=== PATIENT | male | born 1970 | race Caucasian/White ===

== ENCOUNTER → 2021-01-31 | Outpatient (CLI) | payer BC ==
--- NOTE | 2021-01-31 17:01 | ECHOF ---
Referral Reason:R01.1 Cardiac Murmur MEASUREMENTS -------- HEIGHT: 157.5 cm WEIGHT: 54.4 kg BP: 115/69 IVSd: 1.1 cm (0.6 - 1.1) LVIDd: 3.1 cm (3.9 - 5.3) LVPWd: 0.9 cm (0.6 - 1.1) EDV(Teich): 38 ml IVSs: 1.5 cm LVIDs: 2.0 cm LVPWs: 1.4 cm %IVS Thck: 35 % ESV(Teich): 12 ml EF(Teich): 68 % %FS: 37 % SV(Teich): 26 ml LA Diam: 2.2 cm (2.7 - 3.8) RVIDd: 2.9 cm (< 3.3) LALs A4C: 3.9 cm LAAs A4C: 11.5 cm LAESV A-L A4C: 29 ml LAESV MOD A4C: 24 ml Ao Diam: 2.7 cm (2.0 - 3.7) AV Cusp: 2.1 cm (1.5 - 2.6) EPSS: 0.6 cm MV E Dale: 1.01 m/s MV DecT: 126 ms MV Dec [place]: 8.0 m/s MV A Dale: 0.87 m/s MV E/A Ratio: 1.15 MV PHT: 37 ms LVOT Vmax: 1.01 m/s LVOT maxP.06 mmHg AV Vmax: 1.91 m/s AV maxP.52 mmHg AV Vmax: 1.93 m/s AV Vmean: 1.37 m/s AV maxP.91 mmHg AV meanP.32 mmHg AV Env.Ti: 272 ms AV VTI: 37.3 cm TR Vmax: 2.62 m/s TR maxP.48 mmHg RAP: 5.00 mmHg RVSP: 32.48 mmHg MV EF SLOPE: 83.46 mm/s (70 - 150) MV EXCURSION: 17.96 mm (> 18.000) FINDINGS -------- Sinus rhythm. This was a technically good study. The left ventricular size is normal. There is borderline concentric left ventricular hypertrophy. Overall left ventricular systolic function is normal with, an EF between 60 - 65 %. The right ventricle is normal in size. The left atrium is normal in size. The right atrium is normal in size. Interatrial and interventricular septum intact. The aortic valve is bicuspid. There is mild aortic stenosis present. Peak/mean gradient across th e Aortic Valve is 14.91mmHg / 8.32mmHg. The mitral valve is normal. Mild tricuspid regurgitation present. Right ventricular systolic pressure is normal at < 35 mmHg. There is no pulmonic regurgitation present. The aortic root size is normal. Normal inferior vena cava with normal inspiratory collapse consistent with estimated right atrial pre ssure of 5 mmHg. There is no pericardial effusion. CONCLUSIONS -------- 1. The left ventricular size is normal. 2. There is borderline concentric left ventricular hypertrophy. 3. Overall left ventricular systolic function is normal with, an EF between 60 - 65 %. 4. The aortic valve is bicuspid. 5. There is mild aortic stenosis present. 6. Peak/mean gradient across the Aortic Valve is 14.91mmHg / 8.32mmHg. 7. Mild tricuspid regurgitation present. 8. There is no pericardial effusion. VAPOR COATER: Zulma Camacho RDCS
== END | disposition home or self-care (01) ==
LOC: RADECHMAIN 11:54
PROVIDERS: ATTEND Family Medicine
DX: Q23.1 Congenital insufficiency of aortic valve (principal); I07.1 Rheumatic tricuspid insufficiency
CPT/HCPCS: 93306

== ENCOUNTER 2022-02-13 15:02 | Emergency (ER) | payer BC ==
[2022-02-13 15:17] VITALS: RESP 18; TEMP 98.3
--- NOTE | 2022-02-13 16:05 | ED ---
General Adult HPI - General Chief complaint: Head Injury Stated complaint: Brain Bleed, Transfer from CT Time Seen by Provider: 02/13/22 15:40 Source: patient, family, RN notes reviewed, old records reviewed Mode of arrival: wheelchair - History of Present Illness Initial comments: This is a 51-year-old male presents emergency department after having been found by started on the ground on Saturday night. He went to see his primary medical care doctor and because she was a little altered according to the daughter the doctor ordered a CAT scan a CAT scan showed intraventricular hemorrhage so he was sent to the emergency department. Patient states she does not remember fal ling he doesn't know if he did fall the daughter just assume that he fell. Patient states he doesn't have any place on the scalp that is abraded or has a hematoma or any tenderness. Patient denies any neck pain. Patient denies any other complaints at this time. Patient denies any fever chills or cough per patient denies any chest pain difficulty breathing or shortness of breath per patient denies any abdominal pain patient denies nausea vomiting diarrhea per patient denies being on any blood thinners. Patient states he drinks on a regular basis but not every day. - Related Data Home Medications Medication Instructions Recorded Confirmed Cholecalciferol [Vitamin D3 (25 50 mcg PO DAILY 02/13/22 02/13/22 Mcg = 1000 Iu)] Levothyroxine Sodium [Synthroid] 50 mcg PO DAILY 02/13/22 02/13/22 Multivit-Mins/Iron/Folic/Lycop 1 tab PO DAILY 02/13/22 02/13/22 [Centrum Men's Tablet] Allergies Allergy/AdvReac Type Severity Reaction Status Date / Time pancuronium Allergy Anaphylaxis Verified 02/13/22 16:52 Penicillins Allergy Anaphylaxis Verified 02/13/22 16:52 Review of Systems ROS Statement: Those systems with pertinent positive or pertinent negative responses have been documented in the HPI. ROS Other: All systems not noted in ROS Statement are negative. Past Medical History Past Medical History: No Reported History Additional Past Medical History / Comment(s): strong family hx of colon cancer History of Any Multi-Drug Resistant Organisms: None Reported Past Surgical History: Back Surgery Past Anesthesia/Blood Transfusion Reactions: Previous Problems w/ Anesthesia Additional Past Anesthesia/Blood Transfusion Reaction / Comment(s): had problem w/back surg. as teen w/muscle relaxant that was given as part of anes.(pancuronium) Past Psychological History: No Psychological Hx Reported Smoking Status: Current every day smoker Past Alcohol Use History: Occasional Past Drug Use History: None Reported General Exam - General Exam Comments Initial Comments: GENERAL: Patient is well-developed and well-nourished. Patient is nontoxic and well- hydrated and is in no acute distress. ENT: Neck is soft and supple. No significant lymphadenopathy is noted. Oropharynx is clear. Moist mucous membranes. Neck has full range of motion without eliciting any pain. EYES: The sclera were anicteric and conjunctiva were pink and moist. Extraocular movements were intact and pupils were equal round and reactive to light. Eyelids were unremarkable. PULMONARY: Unlabored respirations. Good breath sounds bilaterally. No audible rales rhonchi or wheezing was noted. CARDIOVASCULAR: There is a regular rate and rhythm without any murmurs gallops or rubs. ABDOMEN: Soft and nontender with normal bowel sounds. SKIN: Skin is clear with no lesions or rashes and otherwise unremarkable. NEUROLOGIC: Patient is alert and oriented x3. Cranial nerves II through XII are grossly intact. Motor and sensory are also intact. Normal speech, volume and content. Symmetrical smile. MUSCULOSKELETAL: Normal extremities with adequate strength and full range of motion. No lower extremity swelling or edema. No calf tenderness. LYMPHATICS: No significant lymphadenopathy is noted PSYCHIATRIC: Normal psychiatric evaluation. Course Vital Signs 02/13/22 02/13/22 02/13/22 15:12 16:28 16:50 Temperature 98.3 F Pulse Rate 96 80 92 Respiratory 18 18 18 Rate Blood Pressure 132/80 136/78 125/86 O2 Sat by Pulse 96 98 98 Oximetry Medical Decision Making - Medical Decision Making I spoke with Dr. Dickerson after I reviewed the outpatient CAT scan and I ordered a CTA of the head neck and he agreed to take a look at and determined if he thought it was the hemorrhagic stroke. EKG shows sinus rhythm at 95 bpm DC interval 183 QRSs 83 QT interval 312 QTC is 364 per patient's EKG shows no ST segment elevation or depression. Patient had an outpatient CAT scan that showed interventricular hemorrhage I did a CTA no abnormality besides the already known intraventricular hemorrhage was seen. - Lab Data Result diagrams: 02/13/22 15:54 02/13/22 15:54 Lab Results 0402/13/22 02/13/22 Range/Units 15:54 15:54 15:54 WBC 11.2 H (3.8-10.6) k/uL RBC 4.95 (4.30-5.90) m/uL Hgb 14.1 (13.0-17.5) gm/dL Hct 43.4 (39.0-53.0) % MCV 87.6 (80.0-100.0) fL MCH 28.6 (25.0-35.0) pg MCHC 32.6 (31.0-37.0) g/dL RDW 14.5 (11.5-15.5) % Plt Count 583 H (150-450) k/uL MPV 6.4 Neutrophils % 76 % Lymphocytes % 15 % Monocytes % 6 % Eosinophils % 1 % Basophils % 0 % Neutrophils # 8.5 H (1.3-7.7) k/uL Lymphocytes # 1.6 (1.0-4.8) k/uL Monocytes # 0.6 (0-1.0) k/uL Eosinophils # 0.1 (0-0.7) k/uL Basophils # 0.1 (0-0.2) k/uL PT 11.2 (9.0-12.0) sec INR 1.0 (<1.2) APTT 25.2 (22.0-30.0) sec Sodium 137 (137-145) mmol/L Potassium 4.3 (3.5-5.1) mmol/L Chloride 98 (98-107) mmol/L Carbon Dioxide 29 (22-30) mmol/L Anion Gap 10 mmol/L BUN 15 (9-20) mg/dL Creatinine 0.75 (0.66-1.25) mg/dL Est GFR (CKD-EPI)AfAm >90 (>60 ml/min/1.73 sqM) Est GFR (CKD-EPI)NonAf >90 (>60 ml/min/1.73 sqM) Glucose 105 H (74-99) mg/dL Calcium 9.4 (8.4-10.2) mg/dL Magnesium 2.0 (1.6-2.3) mg/dL Total Bilirubin 0.7 (0.2-1.3) mg/dL AST 23 (17-59) U/L ALT 17 (4-49) U/L Alkaline Phosphatase 91 (38-126) U/L Troponin I (0.000-0.034) ng/mL Total Protein 8.0 (6.3-8.2) g/dL Albumin 3.9 (3.5-5.0) g/dL 02/13/22 Range/Units 15:54 WBC (3.8-10.6) k/uL RBC (4.30-5.90) m/uL Hgb (13.0-17.5) gm/dL Hct (39.0-53.0) % MCV (80.0-100.0) fL MCH (25.0-35.0) pg MCHC (31.0-37.0) g/dL RDW (11.5-15.5) % Plt Count (150-450) k/uL MPV Neutrophils % % Lymphocytes % % Monocytes % % Eosinophils % % Basophils % % Neutrophils # (1.3-7.7) k/uL Lymphocytes # (1.0-4.8) k/uL Monocytes # (0-1.0) k/uL Eosinophils # (0-0.7) k/uL Basophils # (0-0.2) k/uL PT (9.0-12.0) sec INR (<1.2) APTT (22.0-30.0) sec Sodium (137-145) mmol/L Potassium (3.5-5.1) mmol/L Chloride (98-107) mmol/L Carbon Dioxide (22-30) mmol/L Anion Gap mmol/L BUN (9-20) mg/dL Creatinine (0.66-1.25) mg/dL Est GFR (CKD-EPI)AfAm (>60 ml/min/1.73 sqM) Est GFR (CKD-EPI)NonAf (>60 ml/min/1.73 sqM) Glucose (74-99) mg/dL Calcium (8.4-10.2) mg/dL Magnesium (1.6-2.3) mg/dL Total Bilirubin (0.2-1.3) mg/dL AST (17-59) U/L ALT (4-49) U/L Alkaline Phosphatase (38-126) U/L Troponin I <0.012 (0.000-0.034) ng/mL Total Protein (6.3-8.2) g/dL Albumin (3.5-5.0) g/dL Disposition Clinical Impression: Intraventricular hemorrhage Disposition: OTHER INSTITUTION NOT DEFINED Referrals: Donato Del Rio III, MD [Primary Care Provider] - 1-2 days Time of Disposition: 17:50 - Out of Hospital Transfer - Req. Specs Out of Hospital Transfer - Requested Specifics: Other Emergency Center ([facility])
[2022-02-13 16:14] LABS: Basophils # (A) 0.1 k/uL (0-0.2); Basophils % (A) 0 %; Eosinophils # (A) 0.1 k/uL (0-0.7); Eosinophils % (A) 1 %; HCT 43.4 % (39.0-53.0); HGB 14.1 gm/dL (13.0-17.5); Lymphocytes # (A) 1.6 k/uL (1.0-4.8); Lymphocytes % (A) 15 %; MCH 28.6 pg (25.0-35.0); MCHC 32.6 g/dL (31.0-37.0); MCV 87.6 fL (80.0-100.0); Mean Platelet Volume 6.4; Monocytes # (A) 0.6 k/uL (0-1.0); Monocytes % (A) 6 %; Neutrophils # (A) 8.5 k/uL (1.3-7.7); Neutrophils % (A) 76 %; Platelet Count 583 k/uL (150-450); RBC 4.95 m/uL (4.30-5.90); RDW 14.5 % (11.5-15.5); WBC 11.2 k/uL (3.8-10.6)
[2022-02-13 16:15] LABS: ALT 17 U/L (4-49); AST 23 U/L (17-59); African American GFR (CKD) >90 (>60 ml/min/1.73 sqM); Albumin 3.9 g/dL (3.5-5.0); Alkaline Phosphatase 91 U/L (38-126); Anion Gap 10 mmol/L; Blood Urea Nitrogen 15 mg/dL (9-20); Calcium 9.4 mg/dL (8.4-10.2); Carbon Dioxide 29 mmol/L (22-30); Chloride 98 mmol/L (98-107); Glucose 105 mg/dL (74-99); Non-African American GFR(CKD) >90 (>60 ml/min/1.73 sqM); Potassium 4.3 mmol/L (3.5-5.1); Sodium 137 mmol/L (137-145); Total Bilirubin 0.7 mg/dL (0.2-1.3)
[2022-02-13 16:25] LABS: Partial Thromboplastin Time 25.2 sec (22.0-30.0); Prothrombin Time 11.2 sec (9.0-12.0)
--- NOTE | 2022-02-13 16:25 | XR ---
EXAMINATION TYPE: XR chest 2V DATE OF EXAM: 02/13/2022 COMPARISON: NONE HISTORY: Chest pain TECHNIQUE: Frontal and lateral views of the chest are obtained. FINDINGS: Slightly congested pulmonary vasculature. Prominent interstitial lung markings, nonspecific. Question able subtle infiltration in the right upper lung zone mainly in the right lung apex, underlying infec tion or other lesion cannot be excluded, please correlate clinically. Follow-up to resolution is advi sed. Unremarkable remainder of the lungs. No sizable pleural effusion or definite pneumothorax. Slightly i ncreased cardiac transverse diameter. Diffuse osteopenia. Exaggerated dorsal kyphosis. IMPRESSION: Right upper lung zone, predominantly apical pulmonary heterogeneous opacity which could represent inf ection however underlying lesion cannot be excluded, please correlate clinically. Follow-up to comple te resolution is advised. Other findings as described above.
--- NOTE | 2022-02-13 17:13 | CT ---
EXAMINATION TYPE: CT angio head neck CT DLP: 356.1 mGycm, Automated exposure control for dose reduction was used. DATE OF EXAM: 02/13/2022 4:20 PM COMPARISON: CT brain earlier in the day. CLINICAL INDICATION:Male, 51 years old with history of Interventricular hemorrhage; Brain bleed TECHNIQUE: Axially acquired helical CT angiogram of the head and neck was obtained with contrast util izing 75 cc of Isovue-370 administered intravenously. Axial images are supplemented with 3D reconstru ctions which were post-processed at an independent workstation. NASCET criteria used. FINDINGS: CTA HEAD: Redemonstration of acute hemorrhage involving the left ventricular system is pronounced in the latera l ventricle. No obvious source of hemorrhage. No new high density hemorrhage is identified. No eviden ce of mass effect, or midline shift. The remainder of the ventricles, sulci, and cisterns are unremar kable. The visualized portions of the internal carotid arteries, middle cerebral arteries, anterior cerebral arteries, and posterior cerebral arteries are patent. The basilar and vertebral arteries are patent. CTA NECK: Right Carotid System: The common carotid artery and external carotid artery are patent. The carotid bifurcation demonstrate s no evidence of hemodynamically significant stenosis. The remaining portions of the internal carotid artery demonstrate normal size without significant narrowing. Left Carotid System: The common carotid artery and external carotid artery are patent. The carotid bifurcation demonstrate s no evidence of hemodynamically significant stenosis. The remaining portions of the internal carotid artery demonstrate normal size without significant narrowing. Vertebral arteries are patent without evidence hemodynamically significant stenosis. There is a three-vessel aortic arch. The origins of the great vessels are patent. No evidence of hemo dynamically significant stenosis. Apical scarring noted within the right lung apex more so than left. Mildly heterogenous thyroid gland bilaterally. IMPRESSION: 1. No obvious source of patient's ventricular hemorrhage. Similar left ventricular hemorrhage as seen on prior. No new high density hemorrhage identified. 2. No evidence of dissection of the cervical internal carotid arteries or vertebral arteries or any e vidence of significant stenosis at the carotid bifurcations. 3. No evidence of high-grade stenosis or intracranial aneurysm.
[2022-02-13 18:56] VITALS: BP 122/78; PULSE 80
== END 2022-02-13 19:48 | disposition other institution (70) ==
LOC: EC 15:02
DX: S06.369A Traumatic hemorrhage of cerebrum, unspecified, with loss of consciousness of unspecified duration, initial encounter (principal); F17.200 Nicotine dependence, unspecified, uncomplicated; W19.XXXA Unspecified fall, initial encounter
CPT/HCPCS: 36415; 93005; 80053; 83735; 84484; 85025; 85610; 85730; 87635; 71046; 70496; 70498; 99285; Q9967

== ENCOUNTER → 2022-02-13 | Outpatient (CLI) | payer BC ==
--- NOTE | 2022-02-13 15:00 | CT ---
EXAMINATION TYPE: CT brain wo con DATE OF EXAM: 02/13/2022 COMPARISON: None available HISTORY: Altered mental status post fall. CT DLP: 1121 mGycm Automated exposure control for dose reduction was used. TECHNIQUE: CT scan of the brain is performed without IV contrast administration. FINDINGS: Sizable acute hemorrhage is seen within the left lateral ventricle. Minimal blood is seen at the ante rior horn of the right lateral ventricle. No definite blood is seen within the third ventricle or the fourth ventricle. 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 Suspected tiny left anterior frontal subcortical white matter lacunar infarcts. Suspected mild bilate ral cerebral white matter chronic microvascular ischemic changes. Brain volume loss changes, likely a ge-related. No other acute intracranial hemorrhage. No gross acute cortical infarct. No midline shift or herniation. Unremarkable basal cisterns, sella and CP angles. No gross space-occupying lesion, vasogenic edema or mass effect. Unremarkable orbits. Clear visualized paranasal sinuses and mastoid air cells. Osteopenia. Degenerati ve changes of the right TMJ. No definite acute calvarial bone fracture identified. IMPRESSION: Acute left lateral ventricular hemorrhage with minimal blood within the anterior horn of the right la teral ventricle, possibly posttraumatic. No significant midline shift, herniation or ventricular obst ruction. No other intracranial bleeding identified. Recommend neurosurgical consultation. Follow-up t o resolution is advised. Other chronic findings as described above. A [place] critical message alert has been initiated for Donato Del Rio III, MD via the [employer] Critical Results System on 02/13/2022 2:56 PM. This message alert has been sent to Donato bui III, MD via the preferences provided by the clinician for the receipt of Radiology Critical Findin gs. Message ID [id number].
== END | disposition home or self-care (01) ==
LOC: RADCTMAIN 14:08
PROVIDERS: ATTEND Family Medicine
DX: I61.5 Nontraumatic intracerebral hemorrhage, intraventricular (principal)
CPT/HCPCS: 70450

== ENCOUNTER → 2023-01-25 | Outpatient (CLI) | payer BC ==
--- NOTE | 2023-01-26 06:21 | CT ---
EXAMINATION TYPE: CT angio head DATE OF EXAM: 01/25/2023 4:31 PM COMPARISON: CT brain and CTA head February 13, 2022 HISTORY: PT STATES 1 YEAR FOLLOW UP FROM STROKE DUE TO [place] DISEASE. CT DLP: 1242.70 mGycm Automated exposure control for dose reduction was used. TECHNIQUE: Performed without and with IV Contrast, patient injected with 84 mL of Isovue 370. 3D reconstructed images are created on an independent workstation and reviewed.. FINDINGS: Noncontrast CT shows no acute intracranial hemorrhage or midline shift currently. Mild ventricular an d sulcal prominence is seen. There are areas of low attenuation in the deep and periventricular white matter redemonstrated most prominent over the high left frontal parietal region axial image 40 simil ar to prior. Patchy soft tissue density or cerumen is seen in the extra auditory canals bilaterally. Persistent anterior metopic suture which is normal variant. Hypoplastic or non-formed right frontal s inus. Globes are intact and visualized sinuses are clear. CTA images redemonstrate codominant vertebral arteries . There are patent bilateral posterior communi cating arteries redemonstrated. No significant focal stenosis or aneurysm in the posterior circulatio n. Anterior circulation shows slight asymmetric small caliber left middle cerebral artery versus oppo site right side similar to prior. Portions of the anterior cerebral arteries bilaterally are not well seen presumed small caliber and/or stenotic similar to prior. No new focal stenosis. No aneurysm. Fe w prominent small peripheral collateral vessels bilaterally are redemonstrated. IMPRESSION: Mild diffuse cerebral atrophy and mild to moderate chronic small vessel ischemic change r edemonstrated. [place] appears similar on unchanged from prior CT. No new significant focal narrowing is present.
== END | disposition home or self-care (01) ==
LOC: RADCTMAIN 15:26
PROVIDERS: ATTEND Family Medicine
DX: G31.9 Degenerative disease of nervous system, unspecified (principal); I61.5 Nontraumatic intracerebral hemorrhage, intraventricular; I67.82 Cerebral ischemia
CPT/HCPCS: 70496; Q9967

== ENCOUNTER 2023-04-24 09:46 | Day surgery (SDC) | payer BC ==
[~2023-04-24 09:46] MED LIST: LIDOCAINE 1% (10MG/ML) FOR IV START INTRADERMA PRN
[2023-04-24 11:23] VITALS: TEMP 97.8
[2023-04-24] MEDS: LACTATED RINGERS 1,000 ML IV SCH ×2 (11:30→12:15)
[2023-04-24] MEDS ORDERED: PROPOFOL 10 MG/ML 20 ML VIAL IV ONE (12:20)
--- NOTE | 2023-04-24 12:34 | P.PCN ---
Date of Procedure: 04/24/23 Procedure(s) Performed: BRIEF HISTORY: Patient is a 52-year-old pleasant white male scheduled for an elective colonoscopy as a part of screening for colorectal neoplasia. He has family history of colon cancer diagnosed in a paternal grandfather the age 70 and maternal grandmother in her 70s . PROCEDURE PERFORMED: Colonoscopy with snare polypectomy. PREOPERATIVE DIAGNOSIS: Screening for colon cancer and family history of colon cancer. IV sedation per Anesthesia. PROCEDURE: After informed consent was obtained, the patient, was brought into the endoscopy unit. IV sedation was administered by Anesthesia under continuous monitoring. Digital rectal examination was normal. Initially the Olympus CF-160 flexible video colonoscope was then inserted in the rectum, gradually advanced into the cecum without any difficulty. Careful examination was performed as the scope was gradually being withdrawn. Ileocecal valve and the appendiceal orifice were visualized and appeared normal. Prep was excellent. Mucosa of the cecum, ascending colon, transverse colon, descending colon, a normal. In the sigmoid: There was a 1 cm polyp removed by snare polypectomy. In the rectum there was a 4 mm polyp that was removed by cold snare polypectomy. Retroflexion was performed in the rectum and no lesions were seen. The patient tolerated the procedure well. IMPRESSION: 1 cm broad-based; sigmoid polyp status post polypectomy 4 mm rectal polyp status post cold snare polypectomy RECOMMENDATIONS: Findings of this examination were discussed with the patient as well as his family.. He was advised to follow with the biopsy results. He was advised to have repeat colonoscopy in 5 years because of family history of colon cancer and history of colon polyps.
[2023-04-24 12:55] VITALS: BP 135/85; PULSE 75; RESP 18
== END 2023-04-24 13:17 | disposition home or self-care (01) ==
LOC: ORWHC2ENDO 09:46
PROVIDERS: ATTEND Internal Medicine Gastroenterology
DX: Z12.11 Encounter for screening for malignant neoplasm of colon (principal); D12.5 Benign neoplasm of sigmoid colon; K62.1 Rectal polyp; E78.5 Hyperlipidemia, unspecified; M19.90 Unspecified osteoarthritis, unspecified site; E07.9 Disorder of thyroid, unspecified; Z88.0 Allergy status to penicillin; Z79.890 Hormone replacement therapy; Z79.899 Other long term (current) drug therapy; Z86.73 Personal history of transient ischemic attack (TIA), and cerebral infarction without residual deficits; Z80.0 Family history of malignant neoplasm of digestive organs
CPT/HCPCS: 88305; 45385; J2704